=== PATIENT | female | born 1950 | race Caucasian/White ===

== ENCOUNTER 2025-04-07 09:29 | Outpatient (CLI) | payer MEDICARE, BC ==
[2025-04-07] MEDS ORDERED: Iopamidol 370 76% 100 ML VIAL ONE (09:34)
== END 2025-04-07 09:30 | disposition home or self-care (01) ==
LOC: CSHCT 09:29
PROVIDERS: ATTEND Internal Medicine Cardiovascular Disease
DX: R60.9 Edema, unspecified (principal); I70.0 Atherosclerosis of aorta; K83.8 Other specified diseases of biliary tract; Z98.890 Other specified postprocedural states; K82.9 Disease of gallbladder, unspecified
CPT/HCPCS: 74174

== ENCOUNTER 2025-05-08 09:56 | Outpatient (CLI) | payer MEDICARE, BC | END 2025-05-08 09:57 | disposition home or self-care (01) | LOC: CSHMAMMO 09:56 | PROVIDERS: ATTEND Internal Medicine | DX: Z08 Encounter for follow-up examination after completed treatment for malignant neoplasm (principal); Z85.3 Personal history of malignant neoplasm of breast; Z79.818 Long term (current) use of other agents affecting estrogen receptors and estrogen levels | CPT/HCPCS: 77065; G0279 ==